=== PATIENT | female | born 1980 | race African-American/Black ===

== ENCOUNTER 2020-08-13 11:07 | Inpatient (IN) ==
[2020-08-13] MEDS ORDERED: SODIUM CHLORIDE 0.9% 1,000 ML IV STA (11:51)
[2020-08-13] MEDS ORDERED: METOCLOPRAMIDE 10 MG/2 ML VIAL IV STA (11:52)
[2020-08-13 11:58] LABS: Basophils % 0.3 % (0.0-0.8); Hematocrit 36.5 VOL% (35.7-47.0); Hemoglobin 12.4 GM/DL (12.0-16.0); Immature Granulocytes % 0.6 %; Immature Granulocytes Absolute 0.08 #; Lymphocytes # 10.4 10*3/uL (1.4-4.0); Lymphocytes % 79.2 % (21.3-54.2); Mean Platelet Volume 10.4 FL (9.6-12.0); Monocytes % 3.2 % (1.7-12.7); Neutrophils % 16.7 % (38.7-73.9); Platelet Count 178 T/CUMM (130-400); Red Blood Count 4.56 MC/CUMM (3.8-5.5); Red Cell Distribution Width 14.5 % (9.3-17.3); White Blood Count 13.2 T/CUMM (4-12)
[2020-08-13 12:22] LABS: Atypical Lymphocytes Few; Band Neutrophils 2 % (0-10); Hypochromasia 1+; Lymphocytes 57 % (20-55); Microcytosis Slight; Platelet Estimate Adequate; Segmented Neutrophils 33 % (50-85); Smudge Cells Few; Total Cells Counted 100
[2020-08-13 12:24] LABS: Albumin 3.2 G/DL (3.4-5.0); Calcium 8.8 MG/DL (8.5-10.1); Osmolality,Calculated 260.7 MOS/KG (273-304); Total Protein 7.4 G/DL (6.4-8.3)
[2020-08-13 12:49] LABS: Ferritin 2507.8 ng/ml (8-252)
[2020-08-13] MEDS ORDERED: POTASSIUM CHLORIDE 20 MEQ TABLET PO STA (12:52)
[2020-08-13] MEDS ORDERED: cefTRIAXone 1,000 MG in SODIUM CHLORIDE 0.9% 100 ML IV STA (13:39)
[2020-08-13 14:00] LABS: INR 1.1; PT Patient Result 11.9 SECS (9.8-11.9); Partial Thromboplastin Time 32.8 SECS (23.9-33.8)
[2020-08-13] MEDS: PIPERACILLIN/TAZOBACTAM 3,375 MG in SODIUM CHLORIDE 0.9% 100 ML IV SCH ×2 (15:33→23:53)
[2020-08-13] MEDS: ENOXAPARIN 60 MG/0.6 ML SYRINGE SUBCUT SCH (15:33)
[2020-08-13 15:54] LABS: Apearance,Urine CLEAR (Clear); Bilirubin,Urine Small mg/dL (Negative); Blood, Urine Negative (Negative); Glucose,Urine (UA) Negative (Negative); Ketones,Urine 5 mg/dL (Negative); Nitrite,Urine Negative (Negative); Protein,Urine Negative; Squamous Epithelial Cell,Urine Occasional /HPF (0-10); Urine Color Amber (Yellow); Urine Specific Gravity > 1.060 (1.001-1.035)
[2020-08-13] MEDS: SODIUM CHLORIDE 0.9% 1,000 ML IV SCH (17:54)
[2020-08-13 20:09] LABS: Barbiturates Screen,Urine Negative (Negative); Benzodiazepines Screen,Urine Negative (Negative); Cannabinoid Screen,Urine Positive (Negative); Opiate Screen,Urine Negative (Negative); Phencyclidine Screen,Urine Negative (Negative)
[2020-08-13] MEDS: VANCOMYCIN INJ 1,250 MG in SODIUM CHLORIDE 0.9% 250 ML IV SCH (20:44)
[2020-08-13] MEDS ORDERED: hydrOXYzine HCL 25 MG TABLET PO PRN (21:42)
[2020-08-13] MEDS: PANTOPRAZOLE 40 MG VIAL IV SCH (22:45)
[2020-08-14 05:32] LABS: Basophils # 0.1 10*3/uL (0.0-0.2); Basophils % 0.9 % (0.0-0.8); Hematocrit 32.6 VOL% (35.7-47.0); Hemoglobin 10.9 GM/DL (12.0-16.0); Immature Granulocytes % 0.5 %; Immature Granulocytes Absolute 0.05 #; Lymphocytes # 8.3 10*3/uL (1.4-4.0); Lymphocytes % 81.9 % (21.3-54.2); Mean Corpuscular HGB Conc 33.4 GM/DL (32-36); Mean Corpuscular Volume 81.3 FL (87-102); Mean Platelet Volume 10.5 FL (9.6-12.0); Neutrophils % 12.7 % (38.7-73.9); Platelet Count 177 T/CUMM (130-400); Red Blood Count 4.01 MC/CUMM (3.8-5.5); Red Cell Distribution Width 14.5 % (9.3-17.3); White Blood Count 10.1 T/CUMM (4-12)
[2020-08-14 05:59] LABS: Atypical Lymphocytes Few; Band Neutrophils 2 % (0-10); Hypochromasia Slight; Lymphocytes 56 % (20-55); Microcytosis Slight; Platelet Estimate Normal; Segmented Neutrophils 35 % (50-85); Smudge Cells Few; Total Cells Counted 100
[2020-08-14 06:01] LABS: % Iron Saturation 23.4 % (18-50); Albumin 2.6 G/DL (3.4-5.0); Bilirubin,Direct 3.68 MG/DL (0.0-0.20); Bilirubin,Indirect 0.7 MG/DL (0.0-1.0); Bilirubin,Total 4.4 MG/DL (0.2-1.0); Total Protein 5.8 G/DL (6.4-8.3)
[2020-08-14] MEDS: SODIUM CHLORIDE 0.9% 1,000 ML IV SCH ×2 (06:29→21:10)
[2020-08-14 06:45] LABS: Albumin 2.5 G/DL (3.4-5.0); Bilirubin,Total 4.5 MG/DL (0.2-1.0); Ferritin 2432.9 ng/ml (8-252); Osmolality,Calculated 266.1 MOS/KG (273-304); Total Protein 5.9 G/DL (6.4-8.3)
[2020-08-14 07:02] LABS: Sedimentation Rate-Westergren 33 MM/HR (0-20)
[2020-08-14 07:25] LABS: HDL Cholesterol < 10 MG/DL (40-60); Thyroid Stimulating Hormone 0.663 uIU/ml (0.358-3.74); Triglycerides 305 MG/DL (2-150)
[2020-08-14] MEDS ORDERED: ALPRAZolam 0.25 MG TABLET PO PRN (08:05)
[2020-08-14] MEDS ORDERED: LORazepam 2 MG/1 ML VIAL IV ONE ×2 (08:17→14:03)
[2020-08-14] MEDS: PIPERACILLIN/TAZOBACTAM 3,375 MG in SODIUM CHLORIDE 0.9% 100 ML IV SCH ×3 (09:10→22:59)
[2020-08-14] MEDS: PANTOPRAZOLE 40 MG VIAL IV SCH ×2 (09:11→22:05)
[2020-08-14] MEDS: ENOXAPARIN 60 MG/0.6 ML SYRINGE SUBCUT SCH ×2 (09:11→22:05)
[2020-08-14] MEDS: CHOLECALCIFEROL 1,000 UNIT TABLET PO SCH (09:12)
[2020-08-14] MEDS: ACETAMINOPHEN 325 MG TABLET PO PRN (09:12)
[2020-08-14] MEDS: VANCOMYCIN INJ 1,250 MG in SODIUM CHLORIDE 0.9% 250 ML IV SCH ×2 (13:19→13:24)
[2020-08-14] MEDS ORDERED: ACETAMINOPHEN 500 MG TABLET PO ONE (16:36)
[2020-08-15 05:29] LABS: Basophils # 0.1 10*3/uL (0.0-0.2); Basophils % 0.9 % (0.0-0.8); Eosinophils % 0.1 % (0.00-10.9); Hematocrit 33.3 VOL% (35.7-47.0); Immature Granulocytes % 1.3 %; Immature Granulocytes Absolute 0.13 #; Lymphocytes # 7.7 10*3/uL (1.4-4.0); Lymphocytes % 77.8 % (21.3-54.2); Mean Corpuscular Volume 81.2 FL (87-102); Mean Platelet Volume 10.6 FL (9.6-12.0); Monocytes % 3.7 % (1.7-12.7); Neutrophils % 16.2 % (38.7-73.9); Platelet Count 183 T/CUMM (130-400); Red Cell Distribution Width 15.3 % (9.3-17.3); White Blood Count 9.8 T/CUMM (4-12)
[2020-08-15 05:44] LABS: Albumin 2.5 G/DL (3.4-5.0); Bilirubin,Direct 4.5 MG/DL (0.0-0.20); Bilirubin,Indirect 0.9 MG/DL (0.0-1.0); Bilirubin,Total 5.4 MG/DL (0.2-1.0); Total Protein 6.1 G/DL (6.4-8.3)
[2020-08-15 05:56] LABS: Eosinophils 1 % (0-10); Lymphocytes 61 % (20-55); Platelet Estimate Adequate; Segmented Neutrophils 26 % (50-85); Total Cells Counted 100
[2020-08-15 05:57] LABS: Atypical Lymphocytes Few; Hypochromasia 1+; Microcytosis Slight; Ovalocytes Slight; Smudge Cells Few
[2020-08-15 06:00] LABS: Albumin 2.6 G/DL (3.4-5.0); Bilirubin,Total 5.9 MG/DL (0.2-1.0); Calcium 8.1 MG/DL (8.5-10.1); Ferritin 2532.1 ng/ml (8-252); Osmolality,Calculated 272.7 MOS/KG (273-304)
[2020-08-15] MEDS: PIPERACILLIN/TAZOBACTAM 3,375 MG in SODIUM CHLORIDE 0.9% 100 ML IV SCH ×3 (06:22→23:15)
[2020-08-15 07:23] LABS: Sedimentation Rate-Westergren 26 MM/HR (0-20)
[2020-08-15] MEDS ORDERED: BUTALBITAL/ACETAMIN/CAFFEINE 50-325-40 MG TABLET PO ONE (10:00)
[2020-08-15] MEDS ORDERED: BUTALBITAL/ACETAMIN/CAFFEINE 50-325-40 MG TABLET PO PRN (10:00)
[2020-08-15] MEDS: ACETAMINOPHEN 325 MG TABLET PO PRN ×2 (10:12→23:48)
[2020-08-15] MEDS: CHOLECALCIFEROL 1,000 UNIT TABLET PO SCH (10:12)
[2020-08-15] MEDS: ENOXAPARIN 60 MG/0.6 ML SYRINGE SUBCUT SCH (10:13)
[2020-08-15] MEDS: SODIUM CHLORIDE 0.9% 1,000 ML IV SCH ×2 (10:13→23:15)
[2020-08-15] MEDS: PANTOPRAZOLE 40 MG VIAL IV SCH ×2 (10:13→20:15)
[2020-08-15] MEDS: VANCOMYCIN INJ 1,250 MG in SODIUM CHLORIDE 0.9% 250 ML IV SCH ×2 (10:14→20:15)
[2020-08-16 04:07] LABS: Basophils # 0.1 10*3/uL (0.0-0.2); Basophils % 0.9 % (0.0-0.8); Eosinophils % 0.1 % (0.00-10.9); Hematocrit 29.7 VOL% (35.7-47.0); Immature Granulocytes % 1.5 %; Immature Granulocytes Absolute 0.15 #; Lymphocytes # 8.1 10*3/uL (1.4-4.0); Lymphocytes % 79.8 % (21.3-54.2); Mean Corpuscular HGB Conc 33.7 GM/DL (32-36); Mean Corpuscular Volume 81.1 FL (87-102); Monocytes % 3.5 % (1.7-12.7); Neutrophils % 14.2 % (38.7-73.9); Platelet Count 164 T/CUMM (130-400); Red Blood Count 3.66 MC/CUMM (3.8-5.5); Red Cell Distribution Width 15.4 % (9.3-17.3); White Blood Count 10.2 T/CUMM (4-12)
[2020-08-16 04:27] LABS: Albumin 2.3 G/DL (3.4-5.0); Bilirubin,Total 5.6 MG/DL (0.2-1.0); Calcium 7.8 MG/DL (8.5-10.1); Osmolality,Calculated 269.8 MOS/KG (273-304); Total Protein 5.5 G/DL (6.4-8.3)
[2020-08-16 04:32] LABS: Albumin 2.3 G/DL (3.4-5.0); Bilirubin,Direct 4.94 MG/DL (0.0-0.20); Bilirubin,Indirect 1.6 MG/DL (0.0-1.0); Bilirubin,Total 6.5 MG/DL (0.2-1.0); Total Protein 5.3 G/DL (6.4-8.3)
[2020-08-16 04:33] LABS: Atypical Lymphocytes Few; Lymphocytes 73 % (20-55); Platelet Estimate Normal; Segmented Neutrophils 22 % (50-85); Smudge Cells Few; Total Cells Counted 100
[2020-08-16 04:35] LABS: Hypochromasia 1+; Microcytosis Slight
[2020-08-16] MEDS: PIPERACILLIN/TAZOBACTAM 3,375 MG in SODIUM CHLORIDE 0.9% 100 ML IV SCH ×3 (06:08→23:10)
[2020-08-16 07:53] LABS: Sedimentation Rate-Westergren 40 MM/HR (0-20)
[2020-08-16] MEDS: VANCOMYCIN INJ 1,250 MG in SODIUM CHLORIDE 0.9% 250 ML IV SCH ×2 (09:43→22:05)
[2020-08-16] MEDS: PANTOPRAZOLE 40 MG VIAL IV SCH ×2 (09:43→20:50)
[2020-08-16] MEDS: CHOLECALCIFEROL 1,000 UNIT TABLET PO SCH (10:12)
[2020-08-16] MEDS: SODIUM CHLORIDE 0.9% 1,000 ML IV SCH ×2 (13:41→20:52)
[2020-08-16] MEDS: PROMETHAZINE INJ 25 MG in SODIUM CHLORIDE 0.9% 50 ML IV PRN (20:27)
[2020-08-16] MEDS: VANCOMYCIN INJ 1,750 MG in SODIUM CHLORIDE 0.9% 500 ML IV SCH (23:20)
[2020-08-17] MEDS: SODIUM CHLORIDE 0.9% 1,000 ML IV SCH ×2 (00:37→13:55)
[2020-08-17 05:04] LABS: Basophils # 0.1 10*3/uL (0.0-0.2); Basophils % 0.7 % (0.0-0.8); Eosinophils % 0.1 % (0.00-10.9); Hematocrit 28.4 VOL% (35.7-47.0); Hemoglobin 9.7 GM/DL (12.0-16.0); Immature Granulocytes % 2.2 %; Immature Granulocytes Absolute 0.23 #; Lymphocytes # 8.2 10*3/uL (1.4-4.0); Lymphocytes % 79.5 % (21.3-54.2); Mean Corpuscular HGB Conc 34.2 GM/DL (32-36); Mean Corpuscular Volume 79.3 FL (87-102); Mean Platelet Volume 9.9 FL (9.6-12.0); Monocytes % 4.4 % (1.7-12.7); Neutrophils % 13.1 % (38.7-73.9); Platelet Count 188 T/CUMM (130-400); Red Blood Count 3.58 MC/CUMM (3.8-5.5); Red Cell Distribution Width 15.6 % (9.3-17.3); White Blood Count 10.3 T/CUMM (4-12)
[2020-08-17 05:27] LABS: Atypical Lymphocytes Few; Band Neutrophils 1 % (0-10); Hypochromasia 1+; Lymphocytes 77 % (20-55); Microcytosis Slight; Nucleated Red Blood Cells 1 (0-5); Platelet Estimate Adequate; Segmented Neutrophils 17 % (50-85); Smudge Cells Few; Total Cells Counted 100
[2020-08-17 05:31] LABS: Albumin 2.2 G/DL (3.4-5.0); Bilirubin,Direct 5.47 MG/DL (0.0-0.20); Bilirubin,Indirect 1.7 MG/DL (0.0-1.0); Bilirubin,Total 6.4 MG/DL (0.2-1.0); Bilirubin,Total 7.2 MG/DL (0.2-1.0); Calcium 7.7 MG/DL (8.5-10.1); Ferritin 1980.1 ng/ml (8-252); Total Protein 5.5 G/DL (6.4-8.3)
[2020-08-17] MEDS: PROMETHAZINE INJ 25 MG in SODIUM CHLORIDE 0.9% 50 ML IV PRN (05:48)
[2020-08-17] MEDS: PIPERACILLIN/TAZOBACTAM 3,375 MG in SODIUM CHLORIDE 0.9% 100 ML IV SCH ×3 (06:45→22:16)
[2020-08-17 08:28] LABS: Sedimentation Rate-Westergren 33 MM/HR (0-20)
[2020-08-17] MEDS: PANTOPRAZOLE 40 MG VIAL IV SCH ×2 (08:38→20:13)
[2020-08-17] MEDS: CHOLECALCIFEROL 1,000 UNIT TABLET PO SCH (08:42)
[2020-08-17] MEDS ORDERED: DIAZEPAM 5 MG TABLET PO ONE (11:11)
[2020-08-17] MEDS: SODIUM CHLORIDE 0.45% 1,000 ML IV SCH (12:00)
[2020-08-17] MEDS: VANCOMYCIN INJ 1,250 MG in SODIUM CHLORIDE 0.9% 250 ML IV SCH (13:55)
[2020-08-17 14:02] LABS: Antinuclear Ab, S 0.7 U
[2020-08-17] MEDS: VANCOMYCIN INJ 1,750 MG in SODIUM CHLORIDE 0.9% 500 ML IV SCH (14:18)
[2020-08-17] MEDS: POTASSIUM CHLORIDE RIDER 10 MEQ in PREMIX 1 EACH IV PRN ×2 (17:26→19:36)
[2020-08-18] MEDS: ACETAMINOPHEN 325 MG TABLET PO PRN ×2 (00:45→21:35)
[2020-08-18] MEDS: VANCOMYCIN INJ 1,750 MG in SODIUM CHLORIDE 0.9% 500 ML IV SCH ×2 (02:25→13:27)
[2020-08-18 05:13] LABS: Basophils # 0.1 10*3/uL (0.0-0.2); Basophils % 0.7 % (0.0-0.8); Eosinophils % 0.1 % (0.00-10.9); Hematocrit 29.1 VOL% (35.7-47.0); Hemoglobin 9.7 GM/DL (12.0-16.0); Immature Granulocytes % 2.3 %; Immature Granulocytes Absolute 0.22 #; Lymphocytes # 7.3 10*3/uL (1.4-4.0); Lymphocytes % 76.1 % (21.3-54.2); Mean Corpuscular HGB Conc 33.3 GM/DL (32-36); Mean Corpuscular Volume 79.3 FL (87-102); Mean Platelet Volume 10.7 FL (9.6-12.0); Monocytes % 4.1 % (1.7-12.7); Neutrophils % 16.7 % (38.7-73.9); Platelet Count 201 T/CUMM (130-400); Red Blood Count 3.67 MC/CUMM (3.8-5.5); White Blood Count 9.7 T/CUMM (4-12)
[2020-08-18 05:51] LABS: Band Neutrophils 1 % (0-10); Lymphocytes 73 % (20-55); Segmented Neutrophils 22 % (50-85); Total Cells Counted 100
[2020-08-18 05:52] LABS: Atypical Lymphocytes Few; Hypochromasia 1+; Microcytosis Slight; Platelet Estimate Adequate; Smudge Cells Few
[2020-08-18 05:53] LABS: Albumin 2.3 G/DL (3.4-5.0); Bilirubin,Total 7.6 MG/DL (0.2-1.0); Calcium 8.1 MG/DL (8.5-10.1); Ferritin 2383.5 ng/ml (8-252); Osmolality,Calculated 269.8 MOS/KG (273-304); Total Protein 5.6 G/DL (6.4-8.3)
[2020-08-18 06:00] LABS: Albumin 2.2 G/DL (3.4-5.0); Bilirubin,Direct 5.54 MG/DL (0.0-0.20); Bilirubin,Indirect 1.5 MG/DL (0.0-1.0); Total Protein 5.7 G/DL (6.4-8.3)
[2020-08-18] MEDS: PIPERACILLIN/TAZOBACTAM 3,375 MG in SODIUM CHLORIDE 0.9% 100 ML IV SCH ×2 (06:20→17:10)
[2020-08-18 06:54] LABS: Sedimentation Rate-Westergren 63 MM/HR (0-20)
[2020-08-18] MEDS: POTASSIUM CHLORIDE RIDER 10 MEQ in PREMIX 1 EACH IV PRN ×4 (09:51→23:50)
[2020-08-18] MEDS: CHOLECALCIFEROL 1,000 UNIT TABLET PO SCH (09:52)
[2020-08-18] MEDS: PANTOPRAZOLE 40 MG VIAL IV SCH ×2 (09:52→21:35)
[2020-08-18] MEDS: PROMETHAZINE INJ 25 MG in SODIUM CHLORIDE 0.9% 50 ML IV PRN (14:13)
[2020-08-18] MEDS ORDERED: ACETAMINOPHEN 650 MG SUPP RECTAL PRN (15:44)
[2020-08-18] MEDS: SODIUM CHLORIDE 0.45% 1,000 ML IV SCH (17:46)
[2020-08-19] MEDS: PIPERACILLIN/TAZOBACTAM 3,375 MG in SODIUM CHLORIDE 0.9% 100 ML IV SCH (03:12)
[2020-08-19 07:42] LABS: Basophils # 0.1 10*3/uL (0.0-0.2); Basophils % 0.8 % (0.0-0.8); Eosinophils % 0.1 % (0.00-10.9); Hematocrit 30.9 VOL% (35.7-47.0); Hemoglobin 10.4 GM/DL (12.0-16.0); Immature Granulocytes % 2.3 %; Immature Granulocytes Absolute 0.24 #; Lymphocytes # 7.8 10*3/uL (1.4-4.0); Lymphocytes % 74.3 % (21.3-54.2); Mean Corpuscular HGB Conc 33.7 GM/DL (32-36); Mean Corpuscular Volume 80.5 FL (87-102); Mean Platelet Volume 9.6 FL (9.6-12.0); Monocytes % 3.7 % (1.7-12.7); Neutrophils % 18.8 % (38.7-73.9); Platelet Count 201 T/CUMM (130-400); Red Blood Count 3.84 MC/CUMM (3.8-5.5); White Blood Count 10.5 T/CUMM (4-12)
[2020-08-19 08:02] LABS: Albumin 2.4 G/DL (3.4-5.0); Bilirubin,Direct 6.46 MG/DL (0.0-0.20); Bilirubin,Indirect 0.9 MG/DL (0.0-1.0); Bilirubin,Total 7.4 MG/DL (0.2-1.0); Calcium 8.5 MG/DL (8.5-10.1); Osmolality,Calculated 271.8 MOS/KG (273-304); Total Protein 6.1 G/DL (6.4-8.3)
[2020-08-19 08:12] LABS: Anisocytosis 1+; Atypical Lymphocytes Few; Band Neutrophils 2 % (0-10); Eosinophils 1 % (0-10); Lymphocytes 72 % (20-55); Macrocytosis Slight; Platelet Estimate Normal; Polychromasia Slight; Segmented Neutrophils 21 % (50-85); Smudge Cells Few; Target Cells Few; Total Cells Counted 100
[2020-08-19] MEDS: ENOXAPARIN 60 MG/0.6 ML SYRINGE SUBCUT SCH ×2 (08:29→20:46)
[2020-08-19] MEDS: PANTOPRAZOLE 40 MG VIAL IV SCH ×2 (08:30→20:47)
[2020-08-19] MEDS: CHOLECALCIFEROL 1,000 UNIT TABLET PO SCH (08:30)
[2020-08-19] MEDS ORDERED: FLUCONAZOLE 150 MG TABLET PO ONE (15:52)
[2020-08-19] MEDS: SODIUM CHLORIDE 0.45% 1,000 ML IV SCH (16:09)
[2020-08-20 06:39] LABS: Basophils # 0.1 10*3/uL (0.0-0.2); Basophils % 0.7 % (0.0-0.8); Eosinophils % 0.1 % (0.00-10.9); Hematocrit 29.1 VOL% (35.7-47.0); Hemoglobin 9.9 GM/DL (12.0-16.0); Immature Granulocytes % 1.8 %; Immature Granulocytes Absolute 0.16 #; Lymphocytes # 6.8 10*3/uL (1.4-4.0); Lymphocytes % 75.1 % (21.3-54.2); Mean Corpuscular Volume 79.9 FL (87-102); Mean Platelet Volume 9.8 FL (9.6-12.0); Monocytes % 4.1 % (1.7-12.7); Neutrophils % 18.2 % (38.7-73.9); Platelet Count 191 T/CUMM (130-400); Red Blood Count 3.64 MC/CUMM (3.8-5.5); Red Cell Distribution Width 17.3 % (9.3-17.3); White Blood Count 9.1 T/CUMM (4-12)
[2020-08-20 06:59] LABS: Eosinophils 1 % (0-10); Lymphocytes 62 % (20-55); Nucleated Red Blood Cells 1 (0-5); Platelet Estimate Normal; Segmented Neutrophils 28 % (50-85); Total Cells Counted 100
[2020-08-20 07:00] LABS: Atypical Lymphocytes Few; Hypochromasia Slight; Macrocytosis 1+
[2020-08-20 07:26] LABS: Albumin 2.4 G/DL (3.4-5.0); Bilirubin,Direct 5.01 MG/DL (0.0-0.20); Calcium 8.6 MG/DL (8.5-10.1); Osmolality,Calculated 271.7 MOS/KG (273-304); Total Protein 5.9 G/DL (6.4-8.3)
[2020-08-20] MEDS: ENOXAPARIN 60 MG/0.6 ML SYRINGE SUBCUT SCH (08:08)
[2020-08-20] MEDS: CHOLECALCIFEROL 1,000 UNIT TABLET PO SCH (08:08)
[2020-08-20] MEDS: PANTOPRAZOLE 40 MG VIAL IV SCH (08:08)
[2020-08-20] MEDS ORDERED: FLUCONAZOLE 150 MG TABLET PO ONE (09:15)
[2020-08-20 11:14] VITALS: BP 117/70
[2020-08-20 13:40] LABS: Smooth Muscle Antibody Negative (Negative)
[2020-08-20 14:21] LABS: Mitochondrial Antibody (M2) <0.1 U
== END 2020-08-20 15:05 | disposition home or self-care (01) | DRG 442 ==
LOC: N.ED 11:07 → N.EDINP 14:50 → N.2E 15:51 → N.3E 08-16 12:31 → N.4E 08-17 10:25
PROVIDERS: ADMIT Internal Medicine; ATTEND Internal Medicine